=== PATIENT | female | born 1960 | race Caucasian/White ===

== ENCOUNTER 2018-04-23 09:26 | Emergency (ER) | payer OTHER ==
[~2018-04-23] VITALS: Ht 167.6 cm; Wt 65.8 kg
[2018-04-23] MEDS ORDERED: EPIDIOLEX100 MG/1 M PO (09:55)
[2018-04-23] MEDS ORDERED: Cephalexin500 M1 PO (10:19)
== END 2018-04-23 10:31 | disposition home or self-care (01) ==
LOC: ER 09:26
DX: L03.011 Cellulitis of right finger (principal); Z79.899 Other long term (current) drug therapy; F17.210 Nicotine dependence, cigarettes, uncomplicated
CPT/HCPCS: 10060; 99282-25

== ENCOUNTER 2018-10-10 12:42 | Day surgery (SDC) | payer OTHER ==
[~2018-10-10] VITALS: Ht 167.6 cm; Wt 100.3 kg
[~2018-10-10 12:42] MED LIST: ACET500 PO; Cephalexin500 M1 PO; EPIDIOLEX100 MG/1 M PO; THERA1 EACH PO; TURMERIC PO
--- NOTE | 2018-10-10 13:03 | NUR ---
INTO SDS ADMISSION TO UNIT STARTED History, Chart, Medications and Allergies reviewed before start of procedure.Lungs clear T/O to Auscultation. Patient confirms NPO status and agrees with scheduled surgery.
--- NOTE | 2018-10-10 13:46 | NUR ---
PATIENT UP TO BATHROOM AT THIS TIME
--- NOTE | 2018-10-10 18:00 | NUR ---
PATIENT ARRIVED TO ROOM 222, GROGGY. VSS. LS DECREASED IN BASES. SATS >90% ON 1L O2. HRR. R KNEE WITH AQUACEL DRESSING, D&I. STATES PAIN 08/07. CIRC CHECKS WNL. WIGGLES FEET. DENIES NAUSEA. TAKING WATER PO. PAS IN PLACE. ICE ON KNEE. CONT TO MONITOR.
--- NOTE | 2018-10-10 19:00 | NUR ---
PATIENT ADMIN 0.25 MG DILAUDID FOR PAIN, NOW SLEEPING. VSS. REPORT TO NOC RN.
[2018-10-11 05:08] LABS: BASOPHILS ABSOLUTE AUTO 0.03 K/mm3 (0.00-0.23); BASOPHILS PERCENT AUTO 0 % (0-2); EOSINOPHILS PERCENT AUTO 0 % (0-6); Hematocrit 35.5 % (33.0-51.0); Hemoglobin 11.4 g/dL (11.5-16.0); IMMATURE GRAN ABSOLUTE AUTO 0.07 K/mm3 (0.00-0.10); IMMATURE GRAN PERCENT AUTO 0 % (0-1); LYMPHOCYTES ABSOLUTE AUTO 1.06 K/mm3 (0.84-5.20); LYMPHOCYTES PERCENT AUTO 6 % (21-46); MONOCYTES ABSOLUTE AUTO 0.76 K/mm3 (0.16-1.47); MONOCYTES PERCENT AUTO 4 % (4-13); Mean Corpuscular HGB 30.3 pg (26.0-34.0); Mean Corpuscular HGB Conc 32.1 g/dL (31.5-36.5); Mean Corpuscular Volume 94 fL (80-100); Mean Platelet Volume 11.1 fL (9.1-12.4); NEUTROPHILS ABSOLUTE AUTO 15.52 K/mm3 (1.96-9.15); NEUTROPHILS PERCENT AUTO 89 % (41-73); Platelet Count 277 K/mm3 (150-400); RDW Coefficient Variation 12.7 % (11.7-14.2); RDW Standard Deviation 44.3 fL (35.1-46.3); Red Blood Cell Count 3.76 M/mm3 (3.80-5.20); White Blood Cell Count 17.44 K/mm3 (4.00-11.30)
[2018-10-11 05:22] LABS: Anion Gap 10 mmol/L (6-16); Blood Urea Nitrogen 11 mg/dL (8-24); Bun/Creatinine Ratio 17.4 (12.0-20.0); CO2, Blood 25 mmol/L (21-32); Calcium, Blood 8.4 mg/dL (8.5-10.1); Chloride, Blood 105 mmol/L (98-108); Creatinine, Blood 0.63 mg/dL (0.40-1.00); Glomerular Filtration Rate >60 (60-); Glucose, Blood 220 mg/dL (70-99); Potassium, Blood 4.6 mmol/L (3.5-5.5); Sodium, Blood 140 mmol/L (136-145)
--- NOTE | 2018-10-11 06:20 | NUR ---
SHIFT SUMMARY PT A&O X4 T/O SHIFT. POD#1 R TKA; DRESSING CDI. PT UP TO TOILET AND IN [place] WITH FWW AND SBA. PAIN MANAGED PER EMAR. SCD'S AND LORNA'S TO BLE'S. RA; DENIES SOB, CP AND NAUSEA. CALL LIGHT IN REACH; PT DEMONSTRATES USE.
[2018-10-11] MEDS ORDERED: ENOX40I SC (09:57)
[2018-10-11] MEDS ORDERED: Percocet 5-3251 EACH PO (09:57)
--- NOTE | 2018-10-11 15:25 | NUR ---
PATIENT D/C'D HOME AT THIS TIME WITH FRIEND AND DRAFTER APPRENTICE. PATIENT STATES UNDERSTANDING OF MEDS, WOUND CARE, ACTIVITY, F/U APPT, OP PT, ETC. DRAFTER APPRENTICE STATES UNDERSTANDING OF LOVENOX ADMINISTRATION. PATIENT TOLERATING PO, STATES PAIN CONTROLLED, VOIDING. NKO C/O AT THIS TIME.
== END 2018-10-11 15:27 | disposition home or self-care (01) ==
LOC: ORSCMMR 12:42 → SURS 12:43 → ORD 13:15 → ORSCMMR 14:15 → ORD 14:15 → SURS 18:05 → ORSCMMR 10-11 15:27 → SURS 10-11 15:27
PROVIDERS: Orthopaedic Surgery
PROC: 0SRC0JA Replacement of Right Knee Joint with Synthetic Substitute, Uncemented, Open Approach (ICD-10-PCS; principal; 2018-10-10 14:15)
DX: M17.11 Unilateral primary osteoarthritis, right knee (principal); Z01.818 Encounter for other preprocedural examination
CPT/HCPCS: 36415; 73560-RT; 80048; 85025; 86850; 86900; 86901; 88300; 97110; 97116; 97162; 97530; C1776; J0690; J1100; J1170; J1650; J1885; J2250; J2405; J2704; J2710; J2765; J3010; J7120

== ENCOUNTER 2018-11-07 09:57 | Day surgery (SDC) | payer OTHER ==
[~2018-11-07] VITALS: Wt 99.3 kg
[~2018-11-07 09:57] MED LIST changes: +ENOX40I SC; +Percocet 5-3251 EACH PO
--- NOTE | 2018-11-07 10:38 | NUR ---
History, Chart, Medications and Allergies reviewed before start of procedure. Patient confirms NPO status and agrees with scheduled surgery.
[2018-11-07] MEDS ORDERED: OXYC5 PO (10:39)
--- NOTE | 2018-11-07 10:59 | NUR ---
11/07/18 1059 Butch Rahman PROCEDURE COMPLETED ON [facility]. NO COUNTS NEEDED. PT WILL BE TAKEN TO DAY SURGERY FROM THE OPERATING ROOM SUITE.
--- NOTE | 2018-11-07 12:04 | NUR ---
KNEE MANIPULATION RECOVERY DIRECTLY FROM OR TO STEP DOWN. PT TOLERATED CRACKERS AND WATER, GAVE PERCOCET PER ORDER. TO X RAY PER ORDER. RETURNED, DRESSED AND EXERCISING KNEE. RIDE HOME CALLED. GAVE NUMBER FOR PUBLIC ASSIST, PT VERBALIZED SHE WILL CALL THEM WHEN SHE GETS HOME TO HELP HER GET UP HER 10 STEPS. Discharged via wheelchair to private car for ride home.
--- NOTE | 2018-11-07 12:08 | NUR ---
VITAL SIGNS WERE CLEARED FROM MONITOR BEFORE I HAD A CHANCE TO ENTER THE REST IN DURING HER STAY, PT VITALS WERE STABLE.
== END 2018-11-07 22:58 | disposition home or self-care (01) ==
LOC: ORSCMMR 09:57
PROVIDERS: Orthopaedic Surgery
PROC: 0SNCXZZ Release Right Knee Joint, External Approach (ICD-10-PCS; principal; 2018-11-07 11:00)
DX: M25.661 Stiffness of right knee, not elsewhere classified (principal); Z96.651 Presence of right artificial knee joint; T81.9XXS Unspecified complication of procedure, sequela; E66.9 Obesity, unspecified; Z68.35 Body mass index [BMI] 35.0-35.9, adult; Z87.891 Personal history of nicotine dependence; Z79.899 Other long term (current) drug therapy
CPT/HCPCS: 73560-RT; J2250; J2704; J3010; J7120

== ENCOUNTER 2020-10-23 19:45 | Emergency (ER) | payer OTHER ==
[~2020-10-23] VITALS: Ht 167.6 cm; Wt 104.3 kg
[~2020-10-23 19:45] MED LIST changes: +OXYC5 PO
== END 2020-10-23 19:59 | disposition home or self-care (01) ==
LOC: ER 19:45
DX: K04.7 Periapical abscess without sinus (principal); Z79.899 Other long term (current) drug therapy
CPT/HCPCS: 99282

== ENCOUNTER 2020-11-03 11:56 | Emergency (ER) | payer OTHER ==
[~2020-11-03] VITALS: Ht 167.6 cm; Wt 104.3 kg
== END 2020-11-03 13:22 | disposition home or self-care (01) ==
LOC: ER 11:56
DX: M79.662 Pain in left lower leg (principal); M79.605 Pain in left leg; M79.89 Other specified soft tissue disorders
CPT/HCPCS: 93971; 99284-25

== ENCOUNTER → 2022-08-25 | Outpatient (CLI) | payer OTHER ==
[2022-08-28 14:09] LABS: Stool Occult Bld Immuno 1 Negative (NEGATIVE)
== END | disposition home or self-care (01) ==
LOC: LAB SHORT 11:00 → LAB 11:00
PROVIDERS: Nurse Practitioner Family
DX: Z12.11 Encounter for screening for malignant neoplasm of colon (principal)
CPT/HCPCS: G0328